=== PATIENT | female | born 1975 | race Caucasian/White ===

== ENCOUNTER 2023-04-26 14:11 | Outpatient (AMB) | payer OTHER, SELFPAY ==
--- NOTE | 2023-04-26 14:31 | A.OFFVIS_ITS ---
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 HPI Shortness of breath HPI Details Claudia is pleasant 48 year old female, current 1/2 ppd smoker with 15 pack year history, with underlying asthma since childhood. She was referred by PCP for pulmonary evaluation. She reports being evaluated for URI symptoms with associated wheezing and dyspnea in March and treated with doxycyline which she ultimately stopped taking after 2 days, feeling as though her symptoms were worsening. She was also prescribed prednisone with improvements in symptoms. She continues with dyspnea and intermittent cough, prescribed Pulmicort but had discontinued. She denies wheezing or chest tightness. CXR unremarkable. She has been using her albuterol frequently, sometimes multiple times per day with good effect. 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 She reports seasonal allergies, no recent allergy test. She has one dog and will be getting another in the near future. She reports father, smoker, with asthma and COPD as well as son with asthma. [facility] Social History (Updated 04/26/23 @ 14:43 by Giselle Jeffrey LPN) Patient Tobacco Use Status: Current everyday Tobacco user Cigarette Packs Per Day: 0.5 Years Smoked: 30 Smoked in Last 30 Days: Yes Review of Systems Const Denies chills, Denies excessive sweating, Denies fever(s), Denies headache(s) and Denies night sweats Eyes Denies dry eyes, Denies irritation and Denies itchy eyes ENT Reports Normal hearing present, Denies headache(s), Denies nasal congestion, D enies nasal discharge, Denies post nasal drip and Denies sore throat Card Denies chest pain, Denies chest pain at rest, Denies chest pain with activity, Denies claudication, Denies leg edema, Denies orthopnea and Denies paroxysmal nocturnal dyspnea Resp Denies chest congestion, Denies excessive phlegm production, Denies pain on inspiration, Denies pain with cough and Denies stridor Musc Denies myalgias Neuro Reports Normal hearing present and Denies headache(s) Endo Denies excessive sweating Nick/Lymph Denies lymphadenopathy Aller/Immun Denies itchy eyes and Denies seasonal rhinorrhea Physical Exam Vital Signs: Last Vital Signs Pulse 91 04/26/23 14:32 BP 126/68 04/26/23 14:32 Pulse Ox 98 04/26/23 14:32 Oxygen Delivery Method Room Air 04/26/23 14:32 BMI result Body Mass Index 48.7 Const General: cooperative, healthy appearing, comfortable, no acute distress, well developed and alert Nutritional Appearance: obese Orientation/consciousness: patient oriented x3 Limitations: no limitations HEENT Head: Yes normal to inspection, Yes normocephalic and Yes atraumatic Ears: hearing grossly normal bilaterally and external ears normal Eyes General: appearance normal, both eyes and all related structures Eyelids: Yes eyelids normal Sclerae: sclerae normal EOM: EOMs intact bilaterally Neck Neck: Yes normal visual inspection and Yes no lymphadenopathy Lymphatic: no lymphadenopathy noted Chest Chest palpation & inspection: normal inspection of the chest Resp Effort & Inspection: normal respiratory effort, able to speak in complete sentences, no audible wheezes, no cough, no stridor, not tachypneic, no tripod positioning and no use of accessory muscles Auscultation: clear to auscultation bilaterally Cardio Jugular venous distension: no JVD Rate: regular rate Rhythm: regular rhythm Skin Other: warm, dry General skin exam: no rashes or lesions noted Neuro General: patient oriented x3 Cranial nerves: Yes Normal hearing present Cognition (Neuro): normal cognition Gait exam (Neuro): Normal gait present Extrem General: Yes normal to inspection, Yes capillary refill normal, Yes no clubbing, cyanosis or edema and Yes no pedal edema Psych Appearance: grossly normal and well kempt Speech and movement: Normal speech and movement present and Clear speech present Affect: normal affect Attitude: cooperative Thought process: Normal thought process present Thought content: Normal thought content present Insight: Good insight present (Psych) Judgement: Good judgement present (Psych) Assessment & Plan Assessment & Plan (1) Dyspnea: Code(s): R06.00 - Dyspnea, unspecified (2) Asthma: Code(s): J45.909 - Unspecified asthma, uncomplicated (3) Environmental allergies: Code(s): Z91.09 - Other allergy status, other than to drugs and biological substances (4) Nicotine dependence, cigarettes, uncomplicated: Code(s): F17.210 - Nicotine dependence, cigarettes, uncomplicated Plan Claudia's symptoms are likely from underlying asthma with an allergic component. Will send for PFT and RAST to thoroughly evaluate. RAST form given to patient, as she prefers to go to a [facility] lab. Will empirically trial with symbicort. Inhaler technique and importance of oral hygiene reviewed. Discussed effect of smoking and likely trigger of worsening asthma symptoms. Patient not ready to quit at this time. She is aware she can call for smoking cessation referral when ready. All questions were answered and patient is in agreement of plan. Will f ollow up to review results and response to inhaler, or sooner if needed. Orders: Orders Immunoglobulin E Today R06.00 - Dyspnea, unspecified, Z91.09 - Other allergy status, other than to drugs and biological substances Complete Blood Count Auto Diff Today R06.00 - Dyspnea, unspecified PFT pulmonary function test Today J45.909 - Unspecified asthma, uncomplicated CT chest wo IV con Today R06.00 - Dyspnea, unspecified Medications: New albuterol sulfate 90 mcg/actuation (ProAir HFA) 2 puffs inhalation Q4-6H PRN 1 ea 3RF shortness of breath or wheezing mometasone-formoterol 100-5 mcg/actuation (Dulera) 2 puffs inhalation BID 1 ea 6RF Coding Level of Care Code New Pt Level 4 (31641) Diagnoses Dyspnea R06.00 Asthma J45.909 Environmental allergies Z91.09 Nicotine dependence, cigarettes, uncomplicated F17.210
[2023-04-26 14:32] VITALS: BP 126/68; PULSE 91; O2SAT 98; BMI 48.7
== END 2023-04-26 15:16 | disposition home or self-care (01) ==
PROVIDERS: PCP Internal Medicine; Visit Provider Nurse Practitioner Family
DX: R06.00 Dyspnea, unspecified (principal); J45.909 Unspecified asthma, uncomplicated; Z91.09 Other allergy status, other than to drugs and biological substances; F17.210 Nicotine dependence, cigarettes, uncomplicated
CPT/HCPCS: 99204

== ENCOUNTER → 2023-04-26 14:11 | Outpatient (BNVA) | payer OTHER, SELFPAY | PROVIDERS: PCP Internal Medicine; Visit Provider Nurse Practitioner Family ==

== ENCOUNTER 2023-05-18 13:44 | Outpatient (REF) | payer OTHER, SELFPAY ==
[2023-05-18 09:21] VITALS: PULSE 82; RESP 16; O2SAT 98
[2023-05-18 14:48] LABS: MANUAL DIFF FLAG NO
--- NOTE | 2023-05-18 15:14 | PFT_ITS ---
Indication: Asthma Spirometry [FEV1 to FVC 69%; FEV1 2.59 L; FVC 3.77 L. No significant response to bronchodilators noted. Maximum voluntary ventilation 74% predicted.] Lung Volumes [Total lung capacity 115% predicted; residual volume 170% predicted; expiratory reserve volume 24% predicted] Diffusion Capacity [DLCO 111% predicted] Comparisons [None] Interpretation [There is a obstructive ventilatory defect consistent with mild COPD or uncontrolled asthma. No significant response to bronchodilators noted. Mild decrease in the maximum voluntary ventilation. Lung volumes with a trend hyperinflation and significant air trapping due to the obstructive airway disease. The patient also has a decrease in the expiratory reserve volume secondary to an elevated BMI. Diffusing capacity is within normal limits. Clinical correlation warranted.] MTDD
[2023-05-18 15:35] LABS: Basophils Absolute Auto 0.1 X10*3/uL (0.0-0.2); Basophils Percent Auto 0.8 % (0-2); Eosinophils Absolute Auto 0.4 X10*3/uL (0.0-0.4); Eosinophils Percent Auto 4.6 % (0-4); Hematocrit 44.5 % (37.0-47.0); Hemoglobin 15.4 g/dl (12.0-16.0); Imm Gran Abs Auto 0.03 X10*3/uL (0.00-0.03); Imm Gran Pct Auto 0.4 % (0.0-0.4); Lymphocytes Absolute Auto 2.6 X10*3/uL (1.2-4.9); Mean Corpuscular HGB Conc 34.6 g/dl (31.0-35.0); Mean Corpuscular Hemoglobin 29.8 pg (27.0-33.0); Mean Corpuscular Volume 86.1 fL (80.0-98.0); Mean Platelet Volume 10.5 fL (9.4-12.3); Monocytes Absolute Auto 0.7 X10*3/uL (0.1-1.2); Monocytes Percent Auto 7.9 % (2-11); Neutrophils Absolute Auto 4.7 x10*3/uL (2.0-8.3); Neutrophils Percent Auto 55.3 % (45-73); Platelet Count 272 X10*3/uL (160-400); Red Blood Count 5.17 X10*6/uL (4.20-5.50); Red Cell Distribution Width 13.1 % (11.0-16.0); White Blood Count 8.5 X10*3/uL (4.8-10.8)
[2023-05-19 13:38] LABS: Immunoglobulin E 52 kU/L (<OR=114)
[2023-05-20 20:27] LABS: Class Alternaria alternata 0; Class Aspergillus fumigatus 0; Class Bermuda Grass 0; Class Birch 0; Class Cat Dander 0; Class Cladosporium herbarum 0; Class Cockroach 0; Class Common Ragweed 0; Class Cottonwood 0; Class Derm. pterony 0; Class Dermatophagoides farinae 0; Class Dog Dander 0; Class Elm 0; Class Maple Box Elder 0; Class Mountain Cedar 0; Class Mouse Urine Protein 0; Class Mugwort 0; Class Oak 0; Class Penicillium crysogenum 0; Class Rough Pigweed 0; Class Sheep Sorrel 0; Class Sycamore 0; Class Timothy Grass 0; Class Walnut Tree 0; Class White Ash 0; Class White Mulberry 0; D001 IgE D pteronyssinus <0.10 kU/L; D002 - IgE D farinae <0.10 kU/L; E001 - IgE Cat Dander <0.10 kU/L; E005 - IgE Dog Dander <0.10 kU/L; E072-IgE Mouse Urine <0.10 kU/L; G002 IgE Bermuda Grass <0.10 kU/L; G006 - IgE Timothy Grass <0.10 kU/L; I006-IgE Cockroach, German <0.10 kU/L; Immunoglobulin E 47 kU/L (<OR=114); M001 IgE Penicillium chrysogen <0.10 kU/L; M002 - IgE Cladosporium herbar <0.10 kU/L; M003 - IgE Aspergillus fumigat <0.10 kU/L; M006 - IgE Alternaria alternat <0.10 kU/L; T001 IgE Maple/Box Elder <0.10 kU/L; T003 IgE Common Silver Birch <0.10 kU/L; T006 - IgE Cedar, Mountain <0.10 kU/L; T007 - IgE Oak, White <0.10 kU/L; T008 IgE Elm, American <0.10 kU/L; T010 - IgE Walnut <0.10 kU/L; T011 - IgE Maple Leaf Sycamore <0.10 kU/L; T014 - IgE Cottonwood <0.10 kU/L; T015 - IgE Ash, White <0.10 kU/L; T070 - IgE White Mulberry <0.10 kU/L; W001 - IgE Ragweed, Short <0.10 kU/L; W006 - IgE Mugwort <0.10 kU/L; W014 IgE Pigweed, Common <0.10 kU/L; W018 IgE Sheep Sorrel <0.10 kU/L
== END 2023-05-18 13:45 | disposition home or self-care (01) ==
LOC: HO.RESP 13:44
PROVIDERS: PCP Internal Medicine; Visit Provider Nurse Practitioner Family
DX: J45.909 Unspecified asthma, uncomplicated (principal); R06.00 Dyspnea, unspecified; Z91.09 Other allergy status, other than to drugs and biological substances
CPT/HCPCS: 36415; 82785; 85025; 86003; 94010; 94640; 94729

== ENCOUNTER → 2023-05-18 15:14 | Outpatient (BNV) | payer OTHER, SELFPAY | PROVIDERS: PCP Internal Medicine; Visit Provider Hospitalist | DX: J45.909 Unspecified asthma, uncomplicated (principal) | CPT/HCPCS: 94060; 94727; 94729 ==

== ENCOUNTER 2023-05-27 07:13 | Outpatient (REF) | payer OTHER, SELFPAY ==
--- NOTE | ~2023-05-27 | CT_ITS ---
EXAMINATION: CT CHEST WITHOUT CONTRAST CLINICAL INFORMATION: Dyspnea COMPARISON: None available. TECHNIQUE: Multidetector volumetric CT imaging of the chest was done. Axial MIP volume rendering provided. Sagittal and coronal reformatted images were obtained. This CT examination was performed using dose optimization techniques as appropriate, variously including the following: *Automated exposure control *Adjustment of mA and/or kV according to patient size (this includes techniques or standardized protocols for targeted exams where dose is matched to indication/reason for exam; i.e. extremities or head) *Use of iterative reconstruction technique DLP: 333 mGy-cm FINDINGS: POULTRY BREEDER: Unremarkable LUNGS: There is ill-defined groundglass opacity in the right middle lobe and adjacent to the major fissure in the right lower lobe, most likely pneumonitis. Central airways are patent. There is single bulla seen in the right middle lobe medially. MEDIASTINUM: The mediastinum is normal. CORONARY ARTERY CALCIFICATION: Visualized PLEURA: There is no pleural effusion. No pleural mass or thickening. AXILLA: No lymphadenopathy. UPPER ABDOMEN: Patient is status post gastric sleeve procedure. Spleen measured 14.4 cm, enlarged. Gallbladder is surgically absent. OSSEOUS STRUCTURES: Unremarkable. CT/CT chest wo IV con IMPRESSION: Nonspecific groundglass opacities in the right middle lobe and right lower lobe most likely due to pneumonitis/pneumonia. Single bulla in the right middle lobe. Splenomegaly Fleischner guidelines were followed.
== END 2023-05-27 07:14 | disposition home or self-care (01) ==
LOC: HO.CT 07:13
PROVIDERS: PCP Internal Medicine; Visit Provider Nurse Practitioner Family
DX: R06.00 Dyspnea, unspecified (principal)
CPT/HCPCS: 71250

== ENCOUNTER 2023-06-01 14:54 | Outpatient (AMB) | payer OTHER, SELFPAY ==
[2023-06-01 14:56] VITALS: PULSE 99; O2SAT 95; BMI 46.0
--- NOTE | 2023-06-01 14:56 | A.OFFVIS_ITS ---
Intake Vital Signs 06/01/23 14:56 Height 5 ft 4 in Weight 268 lb BMI 46.0 Pulse 99 Pulse Oximetry (%) 95 Oxygen Delivery Method Room Air Intake Visit Reasons: Asthma/CT Chest Follow Up Government Documents Librarian Required: No Senior Marketing Specialist: Senior Marketing Specialist offered & declined Accompanied by: Self / Same As Patient Allergies doxycycline Allergy (Severe, Verified 06/01/23 15:01) shortness of breath azithromycin [Zithromax Z-Chente] Allergy (Unknown, Verified 06/01/23 15:01) rash penicillin V Allergy (Unknown, Verified 06/01/23 15:01) swelling Medication List - Last Reconciled 06/01/23 by Giselle Jeffrey LPN albuterol sulfate 90 mcg/actuation (ProAir HFA) 2 puffs inhalation Q4-6H PRN citalopram 20 mg PO DAILY ipratropium-albuterol 0.5 mg-3 mg(2.5 mg base)/3 mL 3 mL inhalation Q6H PRN lorazepam (Ativan) 0.5 mg orally PRN; one hour prior to dental procedures. mometasone-formoterol 100-5 mcg/actuation (Dulera) 2 puffs inhalation BID HPI Asthma/CT Chest Follow Up HPI Details Claudia is pleasant 48 year old female, current 1/2 ppd smoker with 15 pack year history, and underlying asthma since childhood. She was prescribed Pulmicort but had discontinued as she could not tolerate. 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 Since the last visit she reports worsening cough, dyspnea and wheezing due to URI for the past two weeks, son with similar symptoms. She has been using her albuterol frequently, sometimes multiple times per day with good effect. 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 Today she presents to review PFT and chest CT. Of note, patient actively working toward weight loss and has lost 16 lb since last visit. [facility] Social History (Updated 06/01/23 @ 15:02 by Giselle Jeffrey LPN) Patient Tobacco Use Status: Current everyday Tobacco user Cigarette Packs Per Day: 0.5 Years Smoked: 30 Review of Systems Const Denies chills, Denies excessive sweating, Denies fever(s), Denies headache(s) and Denies night sweats Eyes Denies dry eyes, Denies irritation and Denies itchy eyes ENT Reports Normal hearing present, Denies headache(s), Denies nasal congestion, Denies nasal discharge, Denies post nasal drip and Denies sore throat Card Denies chest pain, Denies chest pain at rest, Denies chest pain with activity, Denies claudication, Denies leg edema, Denies orthopnea and Denies paroxysmal nocturnal dyspnea Resp Denies pain on inspiration, Denies pain with cough and Denies stridor Musc Denies myalgias Neuro Reports Normal hearing present and Denies headache(s) Endo Denies excessive sweating Nick/Lymph Denies lymphadenopathy Aller/Immun Denies itchy eyes and Denies seasonal rhinorrhea Physical Exam Vital Signs: Last Vital Signs Pulse 99 06/01/23 14:56 Pulse Ox 95 06/01/23 14:56 Oxygen Delivery Method Room Air 06/01/23 14:56 BMI result Body Mass Index 46.0 Const General: cooperative, healthy appearing, comfortable, no acute distress, well developed and alert Nutritional Appearance: obese Orientation/consciousness: patient oriented x3 Limitations: no limitations HEENT Head: Yes normal to inspection, Yes normocephalic and Yes atraumatic Ears: hearing grossly normal bilaterally and external ears normal Eyes General: appearance normal, both eyes and all related structures Eyelids: Yes eyelids normal Sclerae: sclerae normal EOM: EOMs intact bilaterally Neck Neck: Yes normal visual inspection and Yes no lymphadenopathy Lymphatic: no lymphadenopathy noted Chest Chest palpation & inspection: normal inspection of the chest Resp Other: wheezing and rhonchi throughout Effort & Inspection: normal respiratory effort, able to speak in complete sentences, no audible wheezes, no stridor, not tachypneic, no tripod positioning and no use of accessory muscles Cardio Jugular venous distension: no JVD Rate: regular rate Rhythm: regular rhythm Skin Other: warm, dry General skin exam: no rashes or lesions noted Neuro General: patient oriented x3 Cranial nerves: Yes Normal hearing present Cognition (Neuro): normal cognition Gait exam (Neuro): Normal gait present Extrem General: Yes normal to inspection, Yes capillary refill normal, Yes no clubbing, cyanosis or edema and Yes no pedal edema Psych Appearance: grossly normal and well kempt Speech and movement: Normal speech and movement present and Clear speech present Affect: normal affect Attitude: cooperative Thought process: Normal thought process present Thought content: Normal thought content present Insight: Good insight present (Psych) Judgement: Good judgement present (Psych) Results Reviewed Results Reviewed: [address] [address] [address] Scan Report Signed Patient: Claudia Rehman MR#: [id number] : 1975 Acct:[id number] Age/Sex: 48 / F ADM Date: 05/27/23 Loc: HO.CT Attending Dr: aJylene Shrestha NP Ordering Physician: Jaylene Shrestha NP Date of Service: 05/27/23 Procedure(s): CT chest wo IV con Accession Number(s): [id number] cc: MARU OLGUIN MD; Jaylene Shrestha NP~ EXAMINATION: CT CHEST WITHOUT CONTRAST CLINICAL INFORMATION: Dyspnea COMPARISON: None available. TECHNIQUE: Multidetector volumetric CT imaging of the chest was done. Axial MIP volume rendering provided. Sagittal and coronal reformatted images were obtained. This CT examination was performed using dose optimization techniques as appropriate, variously including the following: *Automated exposure control *Adjustment of mA and/or kV according to patient size (this includes techniques or standardized protocols for targeted exams where dose is matched to indication/reason for exam; i.e. 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 Central airways are patent. There is single bulla seen in the right middle lobe medially. MEDIASTINUM: The mediastinum is normal. CORONARY ARTERY CALCIFICATION: Visualized PLEURA: There is no pleural effusion. No pleural mass or thickening. AXILLA: No lymphadenopathy. UPPER ABDOMEN: Patient is status post gastric sleeve procedure. Spleen measured 14.4 cm, enlarged. Gallbladder is surgically absent. OSSEOUS STRUCTURES: Unremarkable. CT/CT chest wo IV con IMPRESSION: Nonspecific groundglass opacities in the right middle lobe and right lower lobe most likely due to pneumonitis/pneumonia. Single bulla in the right middle lobe. Splenomegaly Fleischner guidelines were followed. 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 No significant response to bronchodilators noted. Mild decrease in the maximum voluntary ventilation. Lung volumes with a trend hyperinflation and significant air trapping due to the obstructive airway disease. The patient also has a decrease in the expiratory reserve volume secondary to an elevated BMI. Diffusing capacity is within normal limits. Discussed importance of daily inhaler. Will trial Flovent as patient failed Pulmicort. Patient also with bronchitic symptoms for the past 2 weeks which have progressively worsened. CT revealed pneumonitis versus pneumonia. Will send in Levaquin has multiple antibiotic allergies. Will also send in prednisone. She is aware to call the office if symptoms do not improve and will send for chest x-ray. All questions were answered and patient is in agreement of plan. Will follow up in 3 months or sooner if needed. Medications: New levofloxacin 750 mg PO DAILY 7 tabs 0RF fluticasone propionate 110 mcg/actuation administer with spacer 2 puffs inhalation BID 12 grams 6RF prednisone 40mg x 5 days then 20 mg x 5 days 40 mg (2 x 20 mg) PO DAILY 15 tabs 0RF Refilled albuterol sulfate 90 mcg/actuation (ProAir HFA) 2 puffs inhalation Q4-6H PRN 1 ea 3RF shortness of breath or wheezing Coding Level of Care Code Est Pt Level 4 (55807) Diagnoses Asthma-COPD overlap syndrome J44.89 Dyspnea R06.00 Asthma J45.909 Nicotine dependence, cigarettes, uncomplicated F17.210
== END 2023-06-01 15:33 | disposition home or self-care (01) ==
PROVIDERS: PCP Internal Medicine; Visit Provider Nurse Practitioner Family
DX: J44.89 Other specified chronic obstructive pulmonary disease (principal); R06.00 Dyspnea, unspecified; J45.909 Unspecified asthma, uncomplicated; F17.210 Nicotine dependence, cigarettes, uncomplicated
CPT/HCPCS: 99214

== ENCOUNTER → 2023-06-01 14:54 | Outpatient (BNVA) | payer OTHER, SELFPAY | PROVIDERS: PCP Internal Medicine; Visit Provider Nurse Practitioner Family ==